=== PATIENT | female | born 2000 | race Hispanic/Latino ===

== ENCOUNTER 2021-06-09 03:59 | Inpatient (IN) | payer OTHER ==
--- NOTE | 2021-06-09 04:55 | NUR ---
PT WAS SWABBED FOR COVID 19
--- NOTE | 2021-06-09 05:37 | PR ---
[facility] [address] [facility] [place] [address] Signed Progress Notes IP Datetime Report Generated by CPN: 06/09/2021 05:37 PROGRESS NOTES: [id number] Impression: Normal Progression of Labor Procedures: Artificial ROM VITAL SIGNS: [id number] Vital Signs: Reviewed; Within Normal Limits EXAM: [id number] Dilatation: 6.0 Effacement: 80 Station: 0 Contractions: every 4-5 minutes MEMBRANES: [id number] Membranes Status: Ruptured Comments: Continue monitoring, expect delivery soon. FETUS A: [id number] FHR Baseline: 125 Variability: Moderate 6-25bpm Accelerations: 15X15 Presentation: Vertex FETUS B: [id number] Signing Physician: Bárbara Grande MD Copies: ~ *Electronically Signed* 06/09/21 0537 BÁRBARA GRANDE MD PATIENT NAME: DARYL DEL ANGEL PROGRESS NOTE DATE OF : 99 PHYSICIAN: BÁRBARA GRANDE MD RPT #: [id number] REPORT IS CONFIDENTIAL AND NOT TO BE RELEASED WITHOUT AUTHORIZATION
--- NOTE | 2021-06-09 08:40 | NUR ---
06/09/21 0840 Shahla Ness 0818 PT ARRIVED IN PACU NON RESPONSIVE TO NOXIOUS STIMULI WITH OPA IN PLACE. CHIN LIFT HELD BY RN. 0822 PT REACTIVE. OPA REMOVED. 08 RESTING. REU.
--- NOTE | 2021-06-09 13:09 | PR ---
[facility] [address] [place], [place] [address] Signed Progress Notes IP Datetime Report Generated by CPN: 06/09/2021 13:09 PROGRESS NOTES: [id number] Impression: Non-reassuring Heart Rate Other Impressions: bradycardia Procedures: Scalp Electrode Plan: Deliver- Section Informed Consent Obtain: Section Delivery Other Informed Consents: Verbal consent given VITAL SIGNS: [id number] Vital Signs: Reviewed; Within Normal Limits EXAM: [id number] Dilatation: 9.0 Effacement: 90 Station: 1 Contractions: every 4-5 minutes MEMBRANES: [id number] Membranes Status: Ruptured Comments: Late Entry: Patient doing well, but began having deep variables, then prolonged with bradycaria. Tried left side, right side, hands-knees, but unable to get FHR back up. Tried releasing remaing cervix, but unable to start pushing. Code 4 Emergency C/S called and patient taken back to OR, where FHR remained in 60-90's. DIscussed plabn and necessitcy of Urgent response to bradycardia. Patient agreed with C/S. FETUS A: [id number] FHR Baseline: 125 Variability: Moderate 6-25bpm Accelerations: 15X15 Presentation: Vertex FETUS B: [id number] Signing Physician: Bárbara Grande MD Copies: ~ *Electronically Signed* 06/09/21 1309 ÁBRBARA GRANDE MD PATIENT NAME: DARYL DEL ANGEL PROGRESS NOTE DATE OF : 99 PHYSICIAN: BÁRBARA GRANDE MD RPT #: [id number] REPORT IS CONFIDENTIAL AND NOT TO BE RELEASED WITHOUT AUTHORIZATION
--- NOTE | 2021-06-10 14:48 | PR ---
[facility] [address] [facility] [place] [address] Signed PP Progress Notes Datetime Report Generated by CPN: 06/10/2021 14:48 SUBJECTIVE: [id number] Pain: Within Normal Limits Nausea/Vomiting: Denies Vital Signs: [id number] Vital Signs: Reviewed; Within Normal Limits Notable Details: PP Hgb/Hct = 9.9/30.0 EXAM: Ongoing Abdomen/Uterus: Normal Lochia: Normal Extremities: Normal Incision: Normal IMPRESSION/PLAN/PROCEDURES: [id number] Impression: Normal Progression Plan: Discharge Procedures: None Progress Notes: Patietn doing well, without complaint, showered without difficulty, minimal pain, relieved with po pain meds, tolerating food and voiding well. Patient wants to go home today. Will discharge after 36 hours. Signing Physician: Bárbara Grande MD Copies: ~ *Electronically Signed* 06/10/21 1448 BÁRBARA GRANDE MD PATIENT NAME: DARYL DEL ANGEL PROGRESS NOTE DATE OF : 99 PHYSICIAN: BÁRBARA GRANDE MD RPT #: [id number] REPORT IS CONFIDENTIAL AND NOT TO BE RELEASED WITHOUT AUTHORIZATION
--- NOTE | 2021-06-10 14:53 | OR ---
[facility] [address] [place] [address] Signed DATE OF OPERATION: 06/09/2021 SURGEON: Robert Patiño MD The patient of Dr. Patiño. PREOPERATIVE DIAGNOSIS: bradycardia. POSTOPERATIVE DIAGNOSES: bradycardia plus posterior presentation. PROCEDURE: Emergency primary low transverse uterine segment section, delivery of live male . FREIGHT TALLIER: Dr. Guillen. ANESTHESIA: General. ESTIMATED BLOOD LOSS: 600 mL. COMPLICATIONS: None. DRAINS: Yip to bladder. FINDINGS: Live male infant, Apgars 8 and 8, weight 6 pounds 12 ounces. The infant was noted to be in ROP presentation. The cord was wrapped around 1 foot. The rest of the uterus was normal. Both tubes and ovaries were normal. The fluid was light green. DESCRIPTION OF PROCEDURE: The patient was brought to the operating room, placed in supine position, and the patient quickly prepped. A Yip catheter placed in the bladder, draped, and the patient was given general anesthesia. As soon as general anesthesia was obtained, a Electronically Signed By: ROBERT PATIÑO MD 06/10/21 1453 PATIENT NAME: DARYL DEL ANGEL OPERATIVE REPORT DATE OF : 99 REPORT #: [id number] PHYSICIAN: ROBERT PATIÑO MD PCP: NO PRIMARY CARE PHYSICIAN REPORT IS CONFIDENTIAL AND NOT TO BE RELEASED WITHOUT AUTHORIZATION [address] [place], [place] [address] Signed Pfannenstiel skin incision was made with a scalpel, then the subcutaneous tissue was dissected with a scalpel and finger dissection. The fascia was nicked with scalpel and extended in transverse fashion using curved scissors. The underlying abdominal musculature was bluntly and sharply from the fascia above and below the incision. The abdominal musculature and peritoneum were bluntly entered and in vertical fashion along the midline using finger dissection. The Celso self-retaining retractor was inserted into the incision and the lower uterine segment nicked with scalpel and extended in vertical fashion using finger dissection. A small amount of light meconium was noted. The infant was noted to be in vertex ROP presentation and when infant head was wedged in the pelvis, head was brought out of the incision. The rest of the easily delivered. The cord was caught on one foot and this was untangled and then the cord doubly clamped and cut. The infant passed off table in good condition. Cord gases were obtained and the placenta manually removed. Uterine cavity was explored with a lap pad to remove any retained membranes. An angle stitch of 0 Monocryl was placed one in the incision, incision did extend toward the broad ligaments. The right side was closed extended up to the anterior portion of the lower segment. The incision was then closed using running and locking stitch of 0-Monocryl starting on the left side and continuing until the previous closure on the right. The entire incision was imbricated using a running stitch of 0 Monocryl suture. Good hemostasis was noted. The entire pelvis was irrigated, suctioned, and examined, and any superficial bleeding spots cauterized with the Bovie. Because of the raw area and the extension into the broad ligament on both sides. No obvious bleeding was noted. Tisseel was placed along the entire incision and the exposed portion of the broad ligament to help with hemostasis. The Celso retractor was removed. The anterior peritoneum was closed using running stitch 2-0 Vicryl suture. The abdominal musculature was reapproximated using interrupted stitches of 0 Vicryl suture. The abdominal wall incision was irrigated, suctioned, and examined, and any bleeding spots cauterized with the Bovie. The abdominal fascia was then closed using two running stitch of 0 Vicryl suture meeting in the midline. Subcutaneous tissue was irrigated, suctioned, and examined, and any bleeding spots cauterized with the Bovie. The subcutaneous tissue was closed using interrupted stitches of 3-0 Vicryl suture. Skin reapproximated using skin clips. The patient tolerated the procedure well, went to recovery room in good condition. The sponge, needle, and instrument count were correct at the end of the procedure. Robert aPtiño MD Electronically Signed By: ROBERT PATIÑO MD 06/10/21 1453 PATIENT NAME: DARYL DEL ANGEL OPERATIVE REPORT DATE OF : 99 REPORT #: [id number] PHYSICIAN: ROBERT PATIÑO MD PCP: NO PRIMARY CARE PHYSICIAN REPORT IS CONFIDENTIAL AND NOT TO BE RELEASED WITHOUT AUTHORIZATION [facility] [address] [place] [address] [place] [address] Signed MJB/MODL /[id number] Copies: ~ Electronically Signed By: ROBERT PATIÑO MD 06/10/21 1453 PATIENT NAME: DARYL DEL ANGEL OPERATIVE REPORT DATE OF : 99 REPORT #: [id number] PHYSICIAN: ROBERT PATIÑO MD PCP: NO PRIMARY CARE PHYSICIAN REPORT IS CONFIDENTIAL AND NOT TO BE RELEASED WITHOUT AUTHORIZATION
== END 2021-06-10 19:05 | disposition home or self-care (01) | DRG 788 ==
LOC: FBCO 03:59 → FBC 04:24
PROVIDERS: ADMIT General Practice; ATTEND General Practice
PROC: 10907ZC Drainage of Amniotic Fluid, Therapeutic from Products of Conception, Via Natural or Artificial Opening (ICD-10-PCS; 2021-06-09)
PROC: 10D00Z1 Extraction of Products of Conception, Low, Open Approach (ICD-10-PCS; principal; 2021-06-09 07:10)
DX: O76 Abnormality in fetal heart rate and rhythm complicating labor and delivery (principal); Z37.0 Single live birth; Z20.822 Contact with and (suspected) exposure to COVID-19; Z3A.40 40 weeks gestation of pregnancy; O32.8XX0 Maternal care for other malpresentation of fetus, not applicable or unspecified; O48.0 Post-term pregnancy
CPT/HCPCS: 36415; 82803; 85027; 86850; 86900; 86901; A9270; J0330; J1100; J1170; J1885; J2405; J2590; J2704; J2795; J3010; J7121; U0003